=== PATIENT | male | born 1980 | race Two or more races ===

== ENCOUNTER 2024-07-12 10:35 | Emergency (ER) | payer OTHER ==
[~2024-07-12] VITALS: Ht 177.8 cm; Wt 87.5 kg
[2024-07-12] MEDS ORDERED: NORVASC5 MG (11:59)
[2024-07-12] MEDS ORDERED: KETOROLAC TROMETHAMINE 60 MG VIAL IM ONE ×2 (12:27→12:30)
[2024-07-12] MEDS ORDERED: ORPHENADRINE CITRATE 30 MG/ML AMPUL ONE (12:27)
[2024-07-12] MEDS ORDERED: DEXAMETHASONE SODIUM PHOSPHATE 4 MG/ML VIAL ONE (12:28)
[2024-07-12] MEDS ORDERED: DEXAMETHASONE SODIUM PHOSPHATE 4 MG/ML VIAL IM ONE (12:30)
[2024-07-12] MEDS ORDERED: ORPHENADRINE CITRATE 30 MG/ML AMPUL IM ONE (12:30)
== END 2024-07-12 14:18 | disposition home or self-care (01) ==
LOC: ER 10:56
DX: M62.830 Muscle spasm of back (principal); I10 Essential (primary) hypertension